=== PATIENT | male | born 1935 | race Caucasian/White ===

== ENCOUNTER → 2017-11-21 10:04 | Outpatient (CLI) | payer MEDICARE, OTHER, SELFPAY ==
[2017-11-21 10:54] LABS: Add Manual Diff / Slide Review NO; Alanine Aminotransferase 61 IU/L (21-72); Albumin 3.9 g/dL (3.5-5.0); Albumin Globulin Ratio 1.4 (1.0-2.8); Alkaline Phosphatase 61 U/L (38-126); Aspartate Aminotransferase 41 IU/L (17-59); BUN Creatinine Ratio 21.1 (6-22); Basophils Percent Auto 0.7 % (0-2); Bilirubin Total 0.8 mg/dL (0.2-1.3); Blood Urea Nitrogen 19 mg/dL (9-20); Calcium 9.6 mg/dL (8.4-10.2); Carbon Dioxide 30 mmol/L (22-32); Chloride 104 mmol/L (98-107); Cholesterol 165 mg/dL (140-199); Eosinophils Percent Auto 2.5 % (2-4); Estimated Glomerular Filt Rate > 60.0 mL/min (>60); Globulin 2.8 g/dL (1.7-4.1); Glucose 110 mg/dL (80-110); HDL Cholesterol 52 mg/dL (40-60); HEMOLYSIS < 15 (0-50); Hematocrit 46.6 % (41-53); Hemoglobin 15.8 g/dL (13.5-17.5); LDL Cholesterol Calculated 78 mg/dL (<100); Lymphocytes Percent Auto 26.6 % (25-40); Mean Corpuscular HGB Conc 33.8 % (30-36); Mean Corpuscular Volume 100.6 fL (80-100); Monocytes Percent Auto 13.9 % (3-14); Neutrophils Absolute Auto 5300 /uL (3000-5900); Neutrophils Percent Auto 56.3 % (50-75); Platelet Count 284 X10^3/uL (150-400); Potassium 3.9 mmol/L (3.4-5.1); Red Blood Cell Count 4.63 X10^6/uL (4.5-5.9); Red Cell Distribution Width 13.6 % (11.6-14.8); Sodium 142 mmol/L (137-145); Total Protein 6.7 g/dL (6.3-8.2); Triglycerides 177 mg/dL (35-150); White Blood Cell Count 9.4 X10^3/uL (4.5-11.0)
[2017-11-21 14:40] LABS: Hemoglobin A1C% w Est Avg Glu 5.5 % (4.0-6.0)
== END ==
PROVIDERS: Family Provider Family Medicine; PCP Family Medicine; Visit Provider Family Medicine
DX: E78.2 Mixed hyperlipidemia (principal); I10 Essential (primary) hypertension; Z51.81 Encounter for therapeutic drug level monitoring
CPT/HCPCS: 36415; 80053; 80061; 83036; 85025

== ENCOUNTER → 2017-12-30 12:03 | Outpatient (CLI) | payer MEDICARE, OTHER, SELFPAY ==
--- NOTE | 2017-12-30 | DI.CT.S_ITS ---
PROCEDURE: CT ABDOMEN PELVIS WO/W CON INDICATIONS: PAINLESS MICRO HEMATURIA TECHNIQUE: Optional 5 mm thick noncontrast images acquired from the diaphragm to the symphysis pubis. After the administration of intravenous contrast, 5 mm thick images acquired from the diaphragm to the symphysis pubis after a 10-minute delay. 2 mm thick coronal and sagittal reformats were then performed of the kidneys and ureters. For radiation dose reduction, the following was used: automated exposure control, adjustment of mA and/or kV according to patient size. COMPARISON: None. FINDINGS: Image quality: Excellent. Lung bases: Lung bases are clear. Heart size is normal. 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 Urinary system: On precontrast imaging, nonobstructing bilateral renal stones are seen. The largest on the right measures 4 mm. The largest on the left side measures 4-5 mm. Simple appearing nonenhancing bilateral renal cysts are seen. There is a cyst seen at the superior pole of the right kidney that measures up to 4 cm and demonstrates prominent layering calcification within its lumen. The remainder of the cysts are simple in appearance. The kidneys demonstrate normal size. The kidneys enhance symmetrically. When filled with contrast, the renal calyces demonstrate a normal appearance. The visualized ureters are unremarkable. No hydronephrosis is seen. No focal bladder abnormality can be seen. Other solid organs: Liver is normal in size and enhancement. Diffuse fatty liver infiltration is noted. Gallbladder wall does not appear thickened. Biliary system is non dilated. Pancreas enhances normally. Spleen is normal in size and enhancement. No adrenal nodules. Peritoneum and bowel: Bowel loops demonstrate normal wall thickness and caliber. No free fluid or air. Nodes and vessels: No retroperitoneal or mesenteric adenopathy by size criteria. Aorta and inferior vena cava are normal in size. Atherosclerotic calcification is noted. Abdominal wall: No ventral hernias. Anterior abdominal sutures can be seen. Pelvis: No pathologic free pelvic fluid. No inguinal hernias or adenopathy. The prostate gland is prominent in size measuring 5.4 cm transversely, and demonstrates internal coarse calcification. Bones: No suspicious bony lesions. No vertebral body compression fractures. Degenerative changes are seen throughout, which are most focal at the L5-S1 level. Mild grade 1 anterolisthesis is seen at L4-L5, without associated pars defects. IMPRESSION: Bilateral nonobstructing kidney stones are seen. There is a Bosniak type IIF cyst seen at the superior pole of the right kidney, with layering calcification. Please consider followup in 1-2 years for further evaluation. Numerous simple appearing, nonenhancing cysts are seen within each kidney. Incidental note is made of: CABG changes partially seen. Fatty liver infiltration Anterior abdominal sutures Prominent prostate Focal L5-S1 degenerative change Dictated by: Avinash Singh M.D. on 12/30/2017 at 13:56 Approved by: Avinash Singh M.D. on 12/30/2017 at 14:02
== END ==
PROVIDERS: Family Provider Family Medicine; PCP Family Medicine; Visit Provider Urology
DX: R31.21 Asymptomatic microscopic hematuria (principal); N28.1 Cyst of kidney, acquired; N20.0 Calculus of kidney; N40.0 Benign prostatic hyperplasia without lower urinary tract symptoms; M51.37 Other intervertebral disc degeneration, lumbosacral region; I25.10 Atherosclerotic heart disease of native coronary artery without angina pectoris; Z95.1 Presence of aortocoronary bypass graft
CPT/HCPCS: 74178; Q9967

== ENCOUNTER → 2018-06-11 13:02 | Outpatient (CLI) | payer MEDICARE, OTHER, SELFPAY ==
[2018-06-11 14:40] LABS: Blood Urea Nitrogen 22 mg/dL (9-20); Calcium 10.6 mg/dL (8.4-10.2); Carbon Dioxide 27 mmol/L (22-32); Chloride 101 mmol/L (98-107); Estimated Glomerular Filt Rate > 60.0 mL/min (>60); Glucose 153 mg/dL (80-110); HEMOLYSIS < 15 (0-50); Magnesium 1.7 mg/dL (1.6-2.3); Potassium 4.6 mmol/L (3.4-5.1); Sodium 139 mmol/L (137-145)
== END ==
PROVIDERS: PCP Family Medicine; Visit Provider Internal Medicine
DX: I47.2 Ventricular tachycardia (principal)
CPT/HCPCS: 36415; 80048; 83735

== ENCOUNTER → 2018-07-29 15:57 | Outpatient (CLI) | payer MEDICARE, OTHER, SELFPAY ==
--- NOTE | 2018-07-29 | DI.US.S_ITS ---
PROCEDURE: US RENAL COMPLETE INDICATIONS: CYST OF KIDNEY TECHNIQUE: Real-time scanning was performed of the kidneys and bladder, with image documentation. COMPARISON: [facility], CT, CT ABDOMEN PELVIS WO/W CON, 12/30/2017, 12:10. FINDINGS: Kidneys: Kidneys are normal in size. Right kidney measures 11.1 cm long; left kidney measures 12.8 cm long. Right renal cortical thickness is 1.6 cm; left renal cortical thickness is 2.4 cm. Renal cortical echotexture is normal. No hydronephrosis or nephrolithiasis. No suspicious solid mass lesions. Multiple bilateral simple cysts redemonstrated a mildly complex cyst again seen involving the superior pole of the right kidney measuring up to 4.8 cm in diameter with layering calcification posteriorly. Bladder: Pre-void bladder volume is 606 mL. Post-void residual is not evaluated. Pre-void images demonstrate no intraluminal masses or stones. On pre-void images, bilateral ureteral jets are noted with color Doppler interrogation. (Of note, ureteral jets may not be detectable in up to 25% of cases due to insufficient differences in specific gravity between ureteral and bladder urine). Miscellaneous: No free pelvic fluid. IMPRESSION: 1. Bosniak 2 left superior pole right renal cyst which appears similar to prior CT scan measuring up to 4.8 cm and there are multiple bilateral simple cysts. Dictated by: Ben JOSE Interpreted: Rishi Parks MD on 07/30/2018 at 8:36 Approved by: Rishi Parks M.D. on 07/31/2018 at 9:50
== END ==
PROVIDERS: PCP Family Medicine; Visit Provider Urology
DX: N28.1 Cyst of kidney, acquired (principal)
CPT/HCPCS: 76770

== ENCOUNTER → 2018-09-08 08:02 | Outpatient (CLI) | payer MEDICARE, OTHER, SELFPAY ==
--- NOTE | 2018-09-08 09:23 | P.PCN_ITS ---
Cardiac Stress Test Report Referral & Results Date Patient Seen: 09/08/18 Requesting provider: Sugey Hurley Indication: Ventricular tachycardia Rest ECG: Unremarkable Procedure Note: Today following both written and verbal informed consent the patient was exercised according to a standard [place] protocol patient went for a total of 7 minutes 8 seconds achieving a maximum heart rate of 130 maximum systolic blood pressure of 220. This is approximately 10.1 METS. Exercise was terminated at this point because of targets were met. Patient was also given Cardiolite through a previously started Hep-Lock IV by the nuclear security officer approximately 1 minute prior to the cessation of exercise. There are no ST-T segment changes. Occasional PVC including multifocal PVCs and a multifocal ventricular couplet Occasional PAC including a 4-5 beat run of what appears to be in SVT Functional aerobic impairment off scale due to age but estimate at-25% on the active scale Impression: No evidence of ischemia based on usual ECG criteria Excellent exercise capacity Ventricular and supraventricular dysrhythmias as above Please see perfusion imaging report as well Please note: Actual ECG tracings can be found in the PACS system.
--- NOTE | 2018-09-09 15:09 | DI.NM.S_ITS ---
DATE OF SERVICE: 09/08/2018 PROCEDURE PERFORMED: Exercise treadmill stress and rest myocardial perfusion imaging study with gating to assess ejection fraction and regional wall motion. ORDERING PROVIDER: Sugey Hurley MD INDICATIONS: The patient is a 83-year-old male with a history of bypass grafting who now presents with dizziness. EXERCISE TREADMILL TESTING: The patient was able to exercise for a total of 7 minutes 8 seconds on a standard [place] protocol suggesting excellent exercise capacity with an ALANA of -30%, achieving 10.1 METs. He had a normal heart rate response to exercise, achieving a maximum heart rate of 130 bpm (95% of his predicted maximum). He had a moderate hypertensive blood pressure response with a resting blood pressure of 152/80 increasing to a maximum of 220/100. He had no chest discomfort. His resting ECG appears normal and there were no significant ST-segment shifts with exercise. He had occasional multiform PVCs, rarely in couplets, but no other complex ectopy or sustained arrhythmia. At 6 minutes 3 seconds of exercise, at heart rate of 116 bpm, 20.4 mCi of technetium-99 Myoview was injected and the patient was imaged 15 minutes later using a gated SPECT acquisition protocol. He returned the following day and was reinjected with an additional 25.1 mCi of technetium-99 Myoview and was imaged 30 minutes later, again using a gated SPECT acquisition protocol. FINDINGS: 1. Raw Data: There is good myocardial tracer uptake. The lung/heart ratio is normal at 0.29 with a normal TID ratio of 0.97. 2. Quantitative Gated SPECT: Post stress ejection fraction is calculated at 71% without any focal wall motion abnormality. Resting ejection fraction is 73% with a resting end-diastolic volume of 113 mL. 3. Myocardial Perfusion Imaging: Post stress supine images show a normal perfusion pattern without any significant perfusion defects. This is supported by normal perfusion imaging in the prone position. The resting images show an identical perfusion pattern without any areas of improvement. IMPRESSION: 1. Normal myocardial perfusion study. 2. No evidence for any myocardial ischemia or previous myocardial infarction. 3. Normal left ventricular systolic function without focal wall motion abnormality. 4. Excellent exercise capacity without angina or ECG evidence of ischemia. He had a moderate hypertensive blood pressure response to exercise with occasional PVCs, rarely in couplets. 5. Compared to the previous myocardial perfusion study of 09/08/2014, the previous small, subtle distal inferolateral defect it is no longer evident. The patient had a much better exercise duration on his today's study, with a previous ALANA of +20%. Otherwise there has been no significant change. PageJames - CARMELITA/rozina/ doc#: [id number]/job#: [id number] dd: 09/09/2018 12:27:00 dt: 09/09/2018 14:54:00 DICTATING MD/COPIES TO: James Westfall MD; Sugey Hurley MD COPIES MNE: ALCIRA NICK
== END ==
PROVIDERS: PCP Family Medicine; Visit Provider Internal Medicine
DX: R42 Dizziness and giddiness (principal); I47.2 Ventricular tachycardia; R55 Syncope and collapse; Z95.1 Presence of aortocoronary bypass graft
CPT/HCPCS: 78452; 93016; 93017; 93018; A9502

== ENCOUNTER → 2018-10-21 11:12 | Outpatient (CLI) | payer MEDICARE, OTHER, SELFPAY ==
[2018-10-21 13:54] LABS: Alanine Aminotransferase 65 IU/L (21-72); Albumin Globulin Ratio 1.4 (1.0-2.8); Alkaline Phosphatase 68 U/L (38-126); Aspartate Aminotransferase 45 IU/L (17-59); BUN Creatinine Ratio 22.2 (6-22); Bilirubin Total 0.7 mg/dL (0.2-1.3); Blood Urea Nitrogen 20 mg/dL (9-20); Carbon Dioxide 25 mmol/L (22-32); Chloride 106 mmol/L (98-107); Cholesterol 175 mg/dL (140-199); Estimated Glomerular Filt Rate > 60.0 mL/min (>60); Globulin 2.9 g/dL (1.7-4.1); Glucose 108 mg/dL (80-110); HDL Cholesterol 44 mg/dL (40-60); HEMOLYSIS < 15 (0-50); LDL Cholesterol Calculated 73 mg/dL (<100); Magnesium 1.8 mg/dL (1.6-2.3); Sodium 140 mmol/L (137-145); Total Protein 6.9 g/dL (6.3-8.2); Triglycerides 290 mg/dL (35-150)
== END ==
PROVIDERS: Family Provider Family Medicine; PCP Family Medicine; Visit Provider Internal Medicine
DX: E78.5 Hyperlipidemia, unspecified (principal); E83.42 Hypomagnesemia
CPT/HCPCS: 36415; 80053; 80061; 83735

== ENCOUNTER → 2018-12-30 13:08 | Outpatient (CLI) | payer MEDICARE, OTHER, SELFPAY ==
--- NOTE | 2018-12-30 | DI.US.S_ITS ---
PROCEDURE: US RENAL COMPLETE INDICATIONS: CYST OF KIDNEY, AQUIRED TECHNIQUE: Real-time scanning was performed of the kidneys and bladder, with image documentation. COMPARISON: [facility], CT, CT ABDOMEN PELVIS WO/W CON, 12/30/2017, 12:10. [facility], US, US RENAL COMPLETE, 07/29/2018, 16:51. FINDINGS: Kidneys: Kidneys are normal in size. Right kidney measures 11.7 cm long; left kidney measures 1.5 cm long. Right renal cortical thickness is 12.5 cm; left renal cortical thickness is 1.6 cm. Renal cortical echotexture is normal. No hydronephrosis or nephrolithiasis. No suspicious solid mass lesions. There are multiple renal cysts are present. A 4.5 x 4.0 x 4.0 cm cyst in the superior pole of the right kidney demonstrates echogenic debris layering in the dependent area, probably milk of calcium. A 3.4 x 4.0 x 3.6 cm simple cyst is seen in the inferior pole of the right kidney. The largest is in the left kidney measures 7.5 x 5.7 x 8.3 cm, 3.4 x 2.4 x 2.9 cm and 2.2 x 2.0 x 2.3 cm. The cysts are simple in appearance. Bladder: Pre-void bladder volume is 560 mL. Post-void residual is 27 mL. Pre-void images demonstrate no intraluminal masses or stones. On pre-void images, both ureteral jets are noted with color Doppler interrogation. (Of note, ureteral jets may not be detectable in up to 25% of cases due to insufficient differences in specific gravity between ureteral and bladder urine). Prostate is enlarged. Miscellaneous: No free pelvic fluid. IMPRESSION: 1. Multiple renal cysts bilaterally as described. 2. Enlarged prostate with a small post void residual in the bladder. Dictated by: Denis Cook M.D. on 12/30/2018 at 18:14 Approved by: Denis Cook M.D. on 12/30/2018 at 18:19
== END ==
PROVIDERS: Family Provider Family Medicine; PCP Family Medicine; Visit Provider Urology
DX: N28.1 Cyst of kidney, acquired (principal); N40.0 Benign prostatic hyperplasia without lower urinary tract symptoms
CPT/HCPCS: 76770

== ENCOUNTER → 2019-06-29 12:35 | Outpatient (CLI) | payer MEDICARE, OTHER, SELFPAY ==
[2019-06-29 13:18] LABS: Alanine Aminotransferase 62 IU/L (<50); Albumin 4.1 g/dL (3.5-5.0); Albumin Globulin Ratio 1.4 (1.0-2.8); Alkaline Phosphatase 64 U/L (38-126); Aspartate Aminotransferase 54 IU/L (17-59); BUN Creatinine Ratio 22.7 (6-22); Bilirubin Total 0.9 mg/dL (0.2-1.3); Blood Urea Nitrogen 20 mg/dL (9-20); Calcium 9.9 mg/dL (8.4-10.2); Carbon Dioxide 25 mmol/L (22-32); Chloride 108 mmol/L (98-107); Estimated Glomerular Filt Rate > 60.0 mL/min (>60); Glucose 106 mg/dL (80-110); HEMOLYSIS < 15 (0-50); Potassium 4.3 mmol/L (3.4-5.1); Sodium 139 mmol/L (137-145); Total Protein 7.1 g/dL (6.3-8.2)
== END ==
PROVIDERS: Family Provider Family Medicine; PCP Family Medicine; Referring Provider Urology; Visit Provider Urology
DX: N28.1 Cyst of kidney, acquired (principal)
CPT/HCPCS: 36415; 80053

== ENCOUNTER → 2019-06-30 12:37 | Outpatient (CLI) | payer MEDICARE, OTHER, SELFPAY ==
--- NOTE | 2019-06-30 | DI.CT.S_ITS ---
PROCEDURE: CT ABDOMEN WO/W CON INDICATIONS: RENAL CYST TECHNIQUE: Optional 5 mm thick noncontrast images acquired from the diaphragm to the iliac crests. After the administration of intravenous contrast, 5 mm thick images again acquired from the diaphragm to the iliac crests in the arterial and urographic phases. 5 mm thick coronal and sagittal reformats were then acquired. For radiation dose reduction, the following was used: automated exposure control, adjustment of mA and/or kV according to patient size. COMPARISON: [facility], US, US RENAL COMPLETE, 12/30/2018, 13:26. [facility], US, US RENAL COMPLETE, 07/29/2018, 16:51. [facility], CT, CT ABDOMEN PELVIS WO/W CON, 12/30/2017, 12:10. FINDINGS: Image quality: Excellent. Lung bases: Lung bases are clear. Heart size is normal. Genitourinary: The prior comparison CT and ultrasound studies have been reviewed. There are a series of benign appearing renal cortical cysts, one of which contains posterior layering milk of calcium and also slightly elevated internal radiodensity above water. This is located at the superior margin of the right renal cortex measuring up to 4.3 cm with 19.2 Hounsfield units of radiodensity. More inferiorly a 2 cm water density cyst is present at the anterior right renal cortex, mid kidney level. More inferiorly also on the right anteriorly is a 3.6 cm water density cyst and slightly above this cyst medially is a 6 mm hyperdense cyst showing no internal enhancement. The left kidney contains a water density 3.8 cm cyst superiorly, posteriorly, and the largest cyst is located at the lateral cortex of the left kidney measuring up to 6.6 cm, also water density. Immediately adjacent anteriorly is a small 3.0 cm water density cyst. A 5 mm anteromedial hyperdense cyst is incidentally noted at the same axial level. The left kidney contains 2 nonobstructive calyceal calculi at the mid kidney level, the largest measuring 3 x 4 mm posteriorly. Other solid organs: Liver is normal in size and enhancement. Gallbladder appears normal. Biliary system is non dilated. Pancreas enhances normally. Spleen is normal in size and enhancement. No adrenal nodules. Peritoneum and bowel: Unenhanced bowel loops are normal in wall thickness and caliber. No free fluid or air. Nodes and vessels: No retroperitoneal or mesenteric adenopathy by size criteria. 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 Bones: No suspicious bony lesions. No vertebral body compression fractures. Miscellaneous: No ventral hernias. IMPRESSION: Scattered renal cortical cysts previously present, one of which at the upper right kidney contains posterior layering milk of calcium, present in the past on CT scan in 12/30/17. No enhancing soft tissue mass is found, no underlying malignancy or infection is suspected. 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 Incidental note is made of 2 adjacent left mid kidney nonobstructive small calculi the largest measuring 3 x 4 mm. Dictated by: Puneet Mcgraw M.D. on 06/30/2019 at 14:22 Approved by: Puneet Mcgraw M.D. on 06/30/2019 at 14:34
== END ==
PROVIDERS: Family Provider Family Medicine; PCP Family Medicine; Referring Provider Urology; Visit Provider Urology
DX: N28.1 Cyst of kidney, acquired (principal); N20.0 Calculus of kidney; I71.4 Abdominal aortic aneurysm, without rupture
CPT/HCPCS: 74170; Q9967

== ENCOUNTER → 2019-07-08 10:04 | Outpatient (CLI) | payer MEDICARE, OTHER, SELFPAY ==
[2019-07-08 11:12] LABS: Appearance Urine UA CLEAR; Bilirubin Urine UA NEGATIVE (NEGATIVE); Color Urine UA YELLOW; Glucose Urine UA NEGATIVE (Negative); Ketones Urine UA NEGATIVE (NEGATIVE); Leukocyte Esterase Urine UA NEGATIVE (NEGATIVE); Nitrite Urine UA NEGATIVE (Negative); Occult Blood Urine UA 3+ (Negative); Protein Urine UA 2+ (Negative); Specific Gravity Urine UA 1.015 (1.000-1.035); Urobilinogen Urine UA 0.2 E.U./dL (0.2)
[2019-07-08 11:32] LABS: Bacteria Urine Occasional (0-1); Culture Indicated Urine Cult Not Indicated; RBC Urine 5-10/HPF (0-5/HPF); WBC Urine 0-1/HPF (0-5/HPF)
== END ==
PROVIDERS: PCP Nurse Practitioner; Referring Provider Urology; Visit Provider Urology
DX: R31.9 Hematuria, unspecified (principal)
CPT/HCPCS: 81001

== ENCOUNTER → 2019-08-14 15:18 | Outpatient (CLI) | payer MEDICARE, OTHER, SELFPAY ==
[2019-08-18 15:21] LABS: Fecal Immunochemical Test Negative (Negative)
== END ==
PROVIDERS: PCP Nurse Practitioner; Referring Provider Nurse Practitioner; Visit Provider Nurse Practitioner
DX: Z12.11 Encounter for screening for malignant neoplasm of colon (principal)
CPT/HCPCS: 82274

== ENCOUNTER → 2019-10-26 09:49 | Outpatient (CLI) | payer MEDICARE, OTHER, SELFPAY ==
[2019-10-26 11:03] LABS: Cholesterol 175 mg/dL (140-199); HDL Cholesterol 52 mg/dL (40-60); LDL Cholesterol Calculated 67 mg/dL (<100); Magnesium 1.9 mg/dL (1.6-2.3); Triglycerides 279 mg/dL (35-150)
[2019-10-26 11:18] LABS: Creatinine Urine Random 118.9 mg/dL
[2019-10-26 11:33] LABS: Free T3, Triiodothyronine Free 3.54 pg/mL (2.77-5.27)
[2019-10-26 11:47] LABS: Thyroid Stimulating Hormone 3.75 uIU/mL (0.47-4.68)
[2019-10-26 11:49] LABS: Microalbumi Creatinin Ratio Ur 936.9 ug/mg CR (<30); Microalbumin Urine Random 111.4 mg/dL (0-1.6)
== END ==
PROVIDERS: PCP Nurse Practitioner; Referring Provider Nurse Practitioner; Visit Provider Nurse Practitioner
DX: E78.2 Mixed hyperlipidemia (principal); E83.42 Hypomagnesemia; I10 Essential (primary) hypertension; I25.10 Atherosclerotic heart disease of native coronary artery without angina pectoris; Z95.1 Presence of aortocoronary bypass graft; Z12.11 Encounter for screening for malignant neoplasm of colon; Z79.899 Other long term (current) drug therapy
CPT/HCPCS: 36415; 80061; 82043; 82570; 83735; 84439; 84443; 84481

== ENCOUNTER → 2019-12-17 08:41 | Outpatient (CLI) | payer MEDICARE, OTHER, SELFPAY ==
[2019-12-17 10:02] LABS: Cholesterol 173 mg/dL (140-199); HDL Cholesterol 48 mg/dL (40-60); LDL Cholesterol Calculated 53 mg/dL (<100); Triglycerides 362 mg/dL (35-150)
== END ==
PROVIDERS: PCP Nurse Practitioner; Referring Provider Internal Medicine; Visit Provider Internal Medicine
DX: I25.10 Atherosclerotic heart disease of native coronary artery without angina pectoris (principal); E78.2 Mixed hyperlipidemia
CPT/HCPCS: 36415; 80061

== ENCOUNTER → 2020-02-09 14:50 | Outpatient (CLI) | payer MEDICARE, OTHER, SELFPAY ==
--- NOTE | 2020-02-09 | DI.US.S_ITS ---
PROCEDURE: US RENAL COMPLETE INDICATIONS: Other specified disorders of kidney and ureter TECHNIQUE: Real-time scanning was performed of the kidneys and bladder, with image documentation. COMPARISON: [facility], RENAL COMPLETE, 12/30/2018, 13:26. [facility], RENAL COMPLETE, 07/29/2018, 16:51. FINDINGS: Kidneys: Kidneys are normal in size. Right kidney measures 14.8 cm long; left kidney measures 14.7 cm long. Right renal cortical thickness is 1.6 cm; left renal cortical thickness is 1.8 cm. Renal cortical echotexture is normal. No hydronephrosis or nephrolithiasis. No suspicious solid mass lesions. Scattered right renal cortical cysts measure up to 4.5 cm at the upper pole of the right kidney and a 3.9 cm at the lower pole. On the left the largest upper pole cyst measures 3.4 cm and at the mid kidney the largest cyst measures 2.5 cm and at the lower pole of the kidney a large exophytic cysts can be seen measuring up to 8.9 cm. Bladder: Pre-void bladder volume is 66 mL. Post-void residual could not be calculated due to inability to void voluntarily at time of the study.. Pre-void images demonstrate no intraluminal masses or stones. On pre-void images, bilateral ureteral jets are noted with color Doppler interrogation. (Of note, ureteral jets may not be detectable in up to 25% of cases due to insufficient differences in specific gravity between ureteral and bladder urine). Miscellaneous: No free pelvic fluid. IMPRESSION: No hydronephrosis or nephrolithiasis is found. Bilateral renal cortical cysts are present as discussed above the largest of which is exophytic from the lower pole of the left kidney measuring up to 8.9 cm. The patient could not voluntarily void at time of the examination but the bladder volume at that time was 66 cc. No bladder mass or calculus was identified. Dictated by: Puneet Mcgraw M.D. on 02/09/2020 at 16:43 Approved by: Puneet Mcgraw M.D. on 02/09/2020 at 16:46
== END ==
PROVIDERS: PCP Nurse Practitioner; Referring Provider Urology; Visit Provider Urology
DX: N28.1 Cyst of kidney, acquired (principal); N28.89 Other specified disorders of kidney and ureter
CPT/HCPCS: 76770

== ENCOUNTER → 2020-09-08 07:25 | Outpatient (CLI) | payer MEDICARE, OTHER, SELFPAY ==
[2020-09-08 08:22] LABS: Alanine Aminotransferase 54 IU/L (<50); Albumin 3.6 g/dL (3.5-5.0); Albumin Globulin Ratio 1.4 (1.0-2.8); Alkaline Phosphatase 69 U/L (38-126); Aspartate Aminotransferase 51 IU/L (17-59); Bilirubin Total 0.4 mg/dL (0.2-1.3); Blood Urea Nitrogen 24 mg/dL (9-20); Calcium 10.1 mg/dL (8.4-10.2); Carbon Dioxide 27 mmol/L (22-32); Chloride 106 mmol/L (98-107); Cholesterol 171 mg/dL (140-199); Estimated Glomerular Filt Rate > 60.0 mL/min (>60); Globulin 2.5 g/dL (1.7-4.1); Glucose 108 mg/dL (80-110); HDL Cholesterol 44 mg/dL (40-60); HEMOLYSIS < 15 (0-50); LDL Cholesterol Calculated 62 mg/dL (<100); Sodium 140 mmol/L (137-145); Total Protein 6.1 g/dL (6.3-8.2); Triglycerides 324 mg/dL (35-150)
[2020-09-08 08:37] LABS: Free T3, Triiodothyronine Free 4.42 pg/mL (2.77-5.27)
[2020-09-08 08:39] LABS: Creatinine Urine Random 107.9 mg/dL
[2020-09-08 08:51] LABS: Thyroid Stimulating Hormone 4.34 uIU/mL (0.47-4.68)
[2020-09-08 08:59] LABS: Microalbumi Creatinin Ratio Ur 1137.1 ug/mg CR (<30); Microalbumin Urine Random 122.7 mg/dL (0-1.6)
== END ==
PROVIDERS: PCP Nurse Practitioner; Referring Provider Nurse Practitioner; Visit Provider Nurse Practitioner
DX: E78.2 Mixed hyperlipidemia (principal); I10 Essential (primary) hypertension; R79.89 Other specified abnormal findings of blood chemistry; Z79.899 Other long term (current) drug therapy
CPT/HCPCS: 36415; 80053; 80061; 82043; 82570; 84439; 84443; 84481

== ENCOUNTER → 2020-10-12 11:36 | Outpatient (CLI) | payer MEDICARE, OTHER, SELFPAY ==
[2020-10-12 12:05] LABS: Cholesterol 169 mg/dL (140-199); HDL Cholesterol 52 mg/dL (40-60); LDL Cholesterol Calculated 76 mg/dL (<100); Triglycerides 207 mg/dL (35-150)
[2020-10-12 12:57] LABS: Microalbumi Creatinin Ratio Ur 1123.2 ug/mg CR (<30)
[2020-10-12 13:17] LABS: BUN Creatinine Ratio 26.7 (6-22); Blood Urea Nitrogen 28 mg/dL (9-20); Estimated Glomerular Filt Rate > 60.0 mL/min (>60)
--- NOTE | 2020-10-12 13:22 | DI.CT.S_ITS ---
PROCEDURE: CT ABDOMEN WO/W CON INDICATIONS: Cyst of kidney, acquired TECHNIQUE: Optional 5 mm thick noncontrast images acquired from the diaphragm to the iliac crests. After the administration of intravenous contrast, 5 mm thick images again acquired from the diaphragm to the iliac crests in the arterial and urographic phases. 5 mm thick coronal and sagittal reformats were then acquired. For radiation dose reduction, the following was used: automated exposure control, adjustment of mA and/or kV according to patient size. COMPARISON: [facility], CT, CT ABDOMEN WO/W CON, 06/30/2019, 12:36. FINDINGS: Image quality: Excellent. Lung bases: Lung bases are clear. Heart size is normal. Genitourinary: Unchanged simple cyst the upper pole of the right kidney containing milk of calcium, measuring 4.2 cm. No significant change in a cyst with a septation involving the middle pole/lower pole of the left kidney, previously measuring 8.2 x 6.2 cm currently measuring 8.1 x 6.6 cm. Multiple other simple cysts. Small nonobstructing left renal stones. No renal findings or ureteral findings which are suspicious for malignancy. Other solid organs: Liver is normal in size and enhancement. Gallbladder is unremarkable . Biliary system is non dilated. Pancreas enhances normally. Spleen is normal in size and enhancement. No adrenal nodules. Peritoneum and bowel: Unenhanced bowel loops are normal in wall thickness and caliber. No free fluid or air. Nodes and vessels: No retroperitoneal or mesenteric adenopathy by size criteria. Aorta is mildly ectatic but not frankly aneurysmal. Atherosclerotic calcifications. Bones: No suspicious bony lesions. No vertebral body compression fractures. Lumbar degenerative change. Prominent facet arthropathy and degenerative anterolisthesis of L4 on L5 measuring approximately 6 mm, resulting in severe bilateral lateral recess stenosis. Miscellaneous: No ventral hernias. IMPRESSION: 1. Stable renal findings. No findings suspicious for malignancy. 2. 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 Dictated by: Az Lopez M.D. on 10/12/2020 at 14:08 Approved by: Az Lopez M.D. on 10/12/2020 at 14:16
== END ==
PROVIDERS: PCP Nurse Practitioner; Referring Provider Urology; Visit Provider Urology
DX: E78.2 Mixed hyperlipidemia (principal); N28.1 Cyst of kidney, acquired; N18.2 Chronic kidney disease, stage 2 (mild); M47.816 Spondylosis without myelopathy or radiculopathy, lumbar region; M48.061 Spinal stenosis, lumbar region without neurogenic claudication
CPT/HCPCS: 74170; 80061; 82043; 82565; 82570; 84520; Q9967

== ENCOUNTER → 2020-12-19 12:40 | Outpatient (CLI) | payer MEDICARE, OTHER, SELFPAY ==
--- NOTE | 2020-12-19 12:42 | DI.US.S_ITS ---
PROCEDURE: US RENAL COMPLETE INDICATIONS: GLOMERULONEPHRITIS TECHNIQUE: Real-time scanning was performed of the kidneys and bladder, with image documentation. COMPARISON: [facility], CT, CT ABDOMEN WO/W CON, 10/12/2020, 13:21. [facility], US, US RENAL COMPLETE, 02/09/2020, 15:04. FINDINGS: Kidneys: Kidneys are normal in size. Right kidney measures 14.3 cm long; left kidney measures 12.5 cm long. Right renal cortical thickness is 1.5 cm; left renal cortical thickness is 1.7 cm. Renal cortical echotexture is normal. No hydronephrosis or nephrolithiasis. No suspicious solid mass lesions. Multiple bilateral renal cyst again visualized which appears similar to prior examination with the superior pole right renal cyst appearing mildly sub complex containing internal layering debris measuring up to 3.6 cm. Largest cyst on the left measuring up to 7.6 cm which appears similar to prior exam containing a septation. Bladder: Pre-void bladder volume is 394 mL. Post-void residual is 17 mL. Pre-void images demonstrate no intraluminal masses or stones. On pre-void images, left ureteral jets are noted with color Doppler interrogation. (Of note, ureteral jets may not be detectable in up to 25% of cases due to insufficient differences in specific gravity between ureteral and bladder urine). Miscellaneous: No free pelvic fluid. IMPRESSION: 1. Multiple bilateral renal cyst with the superior pole right renal cyst appearing mildly complex containing milk of calcium as was seen on prior examination as well as the larger mildly septated cyst on the left. Continued sonographic surveillance recommended. Dictated by: Ben Mayen [facility] Interpreted: Victoria Bryan MD on 12/19/2020 at 16:44 Transcribed by: EUNICE on 12/19/2020 at 16:49 Approved by: Victoria Bryan MD, PhD on 12/19/2020 at 16:56
== END ==
PROVIDERS: PCP Nurse Practitioner; Referring Provider Internal Medicine Nephrology; Visit Provider Internal Medicine Nephrology
DX: N05.9 Unspecified nephritic syndrome with unspecified morphologic changes (principal); N28.1 Cyst of kidney, acquired
CPT/HCPCS: 76770

== ENCOUNTER → 2020-12-23 10:19 | Outpatient (CLI) | payer MEDICARE, OTHER, SELFPAY ==
[2020-12-23 12:14] LABS: Erythrocyte Sedimentation Rate 6 MM/HR (0-15)
[2020-12-23 12:25] LABS: Hepatitis B Surface Antigen NEGATIVE s/c (NEGATIVE)
[2020-12-23 12:44] LABS: Hep C Virus Ab w/Reflex Quant NEGATIVE s/c (NEGATIVE)
[2020-12-24 04:10] LABS: Complement C3 135 mg/dL (82-167); Hepatitis B Core AB w/Reflex Negative (Negative)
[2020-12-24 05:45] LABS: Hepatitis B Surf Ab Qualitativ Reactive (.)
[2020-12-24 15:07] LABS: Free Kappa Lt Chains, Serum 28.5 mg/L (3.3-19.4); Free Lambda Lt Chains,Serum 17.9 mg/L (5.7-26.3)
[2020-12-26 16:16] LABS: Antimyeloperoxidase AB <9.0 U/mL (0.0-9.0); Antiproteinase 3 AB <3.5 U/mL (0.0-3.5); Atypical P-ANCA Titer <1:20 titer (Neg:<1:20); C-ANCA Titer <1:20 titer (Neg:<1:20); P-ANCA Titer <1:20 titer (Neg:<1:20)
== END ==
PROVIDERS: PCP Nurse Practitioner; Referring Provider Internal Medicine Nephrology; Visit Provider Internal Medicine Nephrology
DX: Z13.9 Encounter for screening, unspecified (principal); N08 Glomerular disorders in diseases classified elsewhere
CPT/HCPCS: 36415; 83516; 83520; 83883; 85651; 86160; 86256; 86704; 86706; 86803; 87340

== ENCOUNTER → 2021-01-20 10:37 | Outpatient (CLI) | payer MEDICARE, OTHER, SELFPAY ==
[2021-01-20 12:12] LABS: Creatinine Urine Random 94.8 mg/dL
[2021-01-20 12:16] LABS: Alanine Aminotransferase 39 IU/L (<50); Albumin 3.8 g/dL (3.5-5.0); Albumin Globulin Ratio 1.5 (1.0-2.8); Alkaline Phosphatase 73 U/L (38-126); Aspartate Aminotransferase 33 IU/L (17-59); BUN Creatinine Ratio 18.3 (6-22); Bilirubin Total 0.7 mg/dL (0.2-1.3); Blood Urea Nitrogen 21 mg/dL (9-20); Calcium 9.9 mg/dL (8.4-10.2); Carbon Dioxide 29 mmol/L (22-32); Chloride 102 mmol/L (98-107); Cholesterol 163 mg/dL (140-199); Estimated Glomerular Filt Rate > 60.0 mL/min (>60); Globulin 2.5 g/dL (1.7-4.1); Glucose 123 mg/dL (80-110); HDL Cholesterol 58 mg/dL (40-60); HEMOLYSIS < 15 (0-50); LDL Cholesterol Calculated 72 mg/dL (<100); Potassium 4.3 mmol/L (3.4-5.1); Sodium 138 mmol/L (137-145); Total Protein 6.3 g/dL (6.3-8.2); Triglycerides 167 mg/dL (35-150)
[2021-01-20 12:32] LABS: Microalbumi Creatinin Ratio Ur 1082.2 ug/mg CR (<30); Microalbumin Urine Random 102.6 mg/dL (0-1.6)
== END ==
PROVIDERS: PCP Nurse Practitioner; Referring Provider Nurse Practitioner; Visit Provider Nurse Practitioner
DX: E78.2 Mixed hyperlipidemia (principal); I10 Essential (primary) hypertension; N18.2 Chronic kidney disease, stage 2 (mild); R80.9 Proteinuria, unspecified; Z79.899 Other long term (current) drug therapy
CPT/HCPCS: 36415; 80053; 80061; 82043; 82570

== ENCOUNTER → 2021-02-14 08:33 | Outpatient (CLI) | payer MEDICARE, OTHER, SELFPAY ==
[2021-02-14 09:31] LABS: Hemoglobin A1C% w Est Avg Glu 5.7 % (4.0-6.0)
[2021-02-14 09:45] LABS: Glucose 111 mg/dL (80-110)
[2021-02-14 09:56] LABS: Creatinine Urine Random 127.5 mg/dL
[2021-02-14 10:46] LABS: Microalbumi Creatinin Ratio Ur 819.6 ug/mg CR (<30); Microalbumin Urine Random 104.5 mg/dL (0-1.6)
== END ==
PROVIDERS: PCP Nurse Practitioner; Referring Provider Nurse Practitioner; Visit Provider Nurse Practitioner
DX: R73.01 Impaired fasting glucose (principal); N18.2 Chronic kidney disease, stage 2 (mild); R80.9 Proteinuria, unspecified
CPT/HCPCS: 36415; 82043; 82570; 82947; 83036

== ENCOUNTER → 2021-03-21 15:28 | Outpatient (CLI) | payer MEDICARE, OTHER, SELFPAY | PROVIDERS: PCP Nurse Practitioner; Visit Provider Nurse Practitioner | DX: L03.90 Cellulitis, unspecified (principal) | CPT/HCPCS: 87070; 87075; 87147; 87205 ==

== ENCOUNTER → 2021-03-28 08:05 | Outpatient (CLI) | payer MEDICARE, OTHER, SELFPAY ==
[2021-03-28 09:51] LABS: Add Manual Diff / Slide Review NO; Basophils Absolute Auto 100 /uL (0-100); Basophils Percent Auto 0.8 % (0-2); Eosinophils Absolute Auto 800 /uL (0-450); Eosinophils Percent Auto 10.4 % (2-4); Hematocrit 44.2 % (41-53); Hemoglobin 14.8 g/dL (13.5-17.5); Lymphocytes Absolute Auto 2200 /uL (1100-4500); Mean Corpuscular HGB Conc 33.6 % (30-36); Mean Corpuscular Hemoglobin 33.2 PG (26-34); Monocytes Absolute Auto 1100 /uL (0-900); Neutrophils Absolute Auto 3400 /uL (1500-7000); Neutrophils Percent Auto 44.8 % (50-75); Platelet Count 218 X10^3/uL (150-400); Red Blood Cell Count 4.46 X10^6/uL (4.5-5.9); Red Cell Distribution Width 14.1 % (11.6-14.8); White Blood Cell Count 7.5 X10^3/uL (4.5-11.0)
[2021-03-28 10:21] LABS: Alanine Aminotransferase 54 IU/L (<50); Albumin Globulin Ratio 1.5 (1.0-2.8); Alkaline Phosphatase 55 U/L (38-126); Aspartate Aminotransferase 46 IU/L (17-59); BUN Creatinine Ratio 20.6 (6-22); Bilirubin Total 0.7 mg/dL (0.2-1.3); Blood Urea Nitrogen 28 mg/dL (9-20); Calcium 10.5 mg/dL (8.4-10.2); Carbon Dioxide 28 mmol/L (22-32); Chloride 107 mmol/L (98-107); Estimated Glomerular Filt Rate 49.7 mL/min (>60); Globulin 2.6 g/dL (1.7-4.1); Glucose 108 mg/dL (80-110); HEMOLYSIS < 15 (0-50); Potassium 5.3 mmol/L (3.4-5.1); Sodium 137 mmol/L (137-145); Total Protein 6.6 g/dL (6.3-8.2)
[2021-03-28 10:34] LABS: Creatinine Urine Random 74.3 mg/dL; Protein (Total) Urine Random 77 mg/dL (0-12); Protein Creatinine Ratio Urine 1.03 GRAM/24H
== END ==
PROVIDERS: PCP Nurse Practitioner; Referring Provider Internal Medicine Nephrology; Visit Provider Internal Medicine Nephrology
DX: R80.9 Proteinuria, unspecified (principal); N08 Glomerular disorders in diseases classified elsewhere; N02.8 Recurrent and persistent hematuria with other morphologic changes
CPT/HCPCS: 36415; 80053; 82570; 84156; 85025

== ENCOUNTER → 2021-04-03 14:36 | Outpatient (CLI) | payer MEDICARE, OTHER, SELFPAY | PROVIDERS: PCP Nurse Practitioner; Referring Provider Nurse Practitioner; Visit Provider Family Medicine | DX: S91.002A Unspecified open wound, left ankle, initial encounter (principal); L08.9 Local infection of the skin and subcutaneous tissue, unspecified; R60.0 Localized edema | CPT/HCPCS: 11042; 87070; 87075; 87205; 93922; 99204; 99214 ==

== ENCOUNTER → 2021-04-10 10:55 | Outpatient (CLI) | payer MEDICARE, OTHER, SELFPAY | PROVIDERS: PCP Nurse Practitioner; Referring Provider Nurse Practitioner; Visit Provider Family Medicine | DX: L97.312 Non-pressure chronic ulcer of right ankle with fat layer exposed (principal); L08.9 Local infection of the skin and subcutaneous tissue, unspecified; R60.0 Localized edema; L23.9 Allergic contact dermatitis, unspecified cause; N18.9 Chronic kidney disease, unspecified; R31.9 Hematuria, unspecified; N28.1 Cyst of kidney, acquired | CPT/HCPCS: 11042; 76770; 87070; 87075; 87077; 87147; 87186; 87205; 99214 ==

== ENCOUNTER → 2021-04-10 14:55 | Outpatient (CLI) | payer MEDICARE, OTHER, SELFPAY ==
--- NOTE | 2021-04-10 14:58 | DI.US.S_ITS ---
PROCEDURE: US RENAL COMPLETE INDICATIONS: BILATERAL RENAL CYSTS. HEMATURIA. TECHNIQUE: Real-time scanning was performed of the kidneys and bladder, with image documentation. COMPARISON: [facility], US, US RENAL COMPLETE, 12/19/2020, 13:14. [facility], CT, CT ABDOMEN WO/W CON, 10/12/2020, 13:21. FINDINGS: Kidneys: Right kidney measures 15.8 cm long; left kidney measures 11.3 cm long. Right renal cortical thickness is 1.8 cm; left renal cortical thickness is 1.7 cm. No hydronephrosis or nephrolithiasis. No significant interval change in mildly complex superior pole right renal cyst which contains a fluid fluid level ( milk of calcium) measuring up to 4.2 cm. Right inferior renal cyst also is present measuring up to 3.8 cm. No significant interval change in mildly complex and septated inferior pole left renal cyst measuring up to 8.3 cm. Bladder: Pre-void bladder volume is 98 mL. Post-void residual is unable to be assessed. Pre-void images demonstrate no intraluminal masses or stones. On pre-void images, neither ureteral jet is noted with color Doppler interrogation. (Of note, ureteral jets may not be detectable in up to 25% of cases due to insufficient differences in specific gravity between ureteral and bladder urine). Prostate measures up to 5.2 cm. Miscellaneous: No free pelvic fluid. IMPRESSION: 1. Stable appearance of bilateral complex cysts compared to prior examination. Dictated by: Ben PERAZA Interpreted: Jesus Oro MD on 04/10/2021 at 15:52 Transcribed by: LIONEL on 04/10/2021 at 15:56 Approved by: Jesus Oro M.D. on 04/10/2021 at 17:30
== END ==
PROVIDERS: PCP Nurse Practitioner; Referring Provider Urology; Visit Provider Urology
DX: R31.9 Hematuria, unspecified (principal); N28.1 Cyst of kidney, acquired
CPT/HCPCS: 76770

== ENCOUNTER → 2021-04-24 11:57 | Outpatient (CLI) | payer MEDICARE, OTHER, SELFPAY | PROVIDERS: PCP Nurse Practitioner; Referring Provider Nurse Practitioner; Visit Provider Family Medicine | DX: L85.3 Xerosis cutis (principal); N02.8 Recurrent and persistent hematuria with other morphologic changes; I25.10 Atherosclerotic heart disease of native coronary artery without angina pectoris; Z87.2 Personal history of diseases of the skin and subcutaneous tissue | CPT/HCPCS: 99213; 99214 ==

== ENCOUNTER → 2021-06-05 08:53 | Outpatient (CLI) | payer MEDICARE, OTHER, SELFPAY ==
[2021-06-05 11:20] LABS: Alanine Aminotransferase 47 IU/L (<50); Albumin 3.9 g/dL (3.5-5.0); Albumin Globulin Ratio 1.5 (1.0-2.8); Alkaline Phosphatase 63 U/L (38-126); Aspartate Aminotransferase 39 IU/L (17-59); BUN Creatinine Ratio 21.8 (6-22); Bilirubin Total 0.4 mg/dL (0.2-1.3); Blood Urea Nitrogen 24 mg/dL (9-20); Calcium 9.7 mg/dL (8.4-10.2); Carbon Dioxide 26 mmol/L (22-32); Chloride 108 mmol/L (98-107); Estimated Glomerular Filt Rate > 60.0 mL/min (>60); Globulin 2.6 g/dL (1.7-4.1); Glucose 115 mg/dL (80-110); HEMOLYSIS < 15 (0-50); Potassium 3.9 mmol/L (3.4-5.1); Sodium 139 mmol/L (137-145); Total Protein 6.5 g/dL (6.3-8.2)
[2021-06-05 19:47] LABS: Creatinine Urine Random 126.8 mg/dL; Protein (Total) Urine Random 136 mg/dL (0-12); Protein Creatinine Ratio Urine 1.07 GRAM/24H
== END ==
PROVIDERS: PCP Nurse Practitioner; Referring Provider Internal Medicine; Visit Provider Internal Medicine
DX: I10 Essential (primary) hypertension (principal); N02.8 Recurrent and persistent hematuria with other morphologic changes
CPT/HCPCS: 36415; 80053; 82570; 84156

== ENCOUNTER → 2021-10-06 07:19 | Outpatient (CLI) | payer MEDICARE, OTHER, SELFPAY ==
[2021-10-06 08:52] LABS: Creatinine Urine Random 126.7 mg/dL
[2021-10-06 09:05] LABS: Alanine Aminotransferase 72 IU/L (<50); Albumin Globulin Ratio 1.7 (1.0-2.8); Alkaline Phosphatase 72 U/L (38-126); Aspartate Aminotransferase 49 IU/L (17-59); BUN Creatinine Ratio 22.4 (6-22); Bilirubin Total 0.5 mg/dL (0.2-1.3); Blood Urea Nitrogen 24 mg/dL (9-20); Calcium 9.8 mg/dL (8.4-10.2); Carbon Dioxide 26 mmol/L (22-32); Chloride 107 mmol/L (98-107); Cholesterol 167 mg/dL (140-199); Estimated Glomerular Filt Rate > 60 mL/min (>60); Globulin 2.3 g/dL (1.7-4.1); Glucose 107 mg/dL (80-110); HDL Cholesterol 54 mg/dL (40-60); HEMOLYSIS < 15 (0-50); LDL Cholesterol Calculated 50 mg/dL (<100); Potassium 4.1 mmol/L (3.4-5.1); Sodium 140 mmol/L (137-145); Total Protein 6.3 g/dL (6.3-8.2); Triglycerides 314 mg/dL (35-150)
[2021-10-06 09:22] LABS: Free T3, Triiodothyronine Free 3.27 pg/mL (2.77-5.27); Free T4, Direct Thyroxine 0.84 ng/dL (0.78-2.19)
[2021-10-06 09:36] LABS: Thyroid Stimulating Hormone 4.33 uIU/mL (0.47-4.68)
[2021-10-06 09:43] LABS: Microalbumi Creatinin Ratio Ur 493.2 ug/mg CR (<30); Microalbumin Urine Random 62.5 mg/dL (0-1.6)
== END ==
PROVIDERS: PCP Nurse Practitioner; Referring Provider Nurse Practitioner; Visit Provider Nurse Practitioner
DX: E78.2 Mixed hyperlipidemia (principal); I12.9 Hypertensive chronic kidney disease with stage 1 through stage 4 chronic kidney disease, or unspecified chronic kidney disease; N18.2 Chronic kidney disease, stage 2 (mild); R73.01 Impaired fasting glucose; R80.9 Proteinuria, unspecified; Z79.899 Other long term (current) drug therapy
CPT/HCPCS: 36415; 80053; 80061; 82043; 82570; 84439; 84443; 84481

== ENCOUNTER → 2021-10-11 11:02 | Outpatient (CLI) | payer MEDICARE, OTHER, SELFPAY ==
[2021-10-11 12:40] LABS: Clostridium Difficile Tox PCR Negative for C. diff (Negative)
== END ==
PROVIDERS: PCP Nurse Practitioner; Referring Provider Nurse Practitioner; Visit Provider Nurse Practitioner
DX: R19.7 Diarrhea, unspecified (principal)
CPT/HCPCS: 87324; 87493

== ENCOUNTER → 2021-11-28 08:11 | Outpatient (CLI) | payer MEDICARE, OTHER, SELFPAY ==
[2021-11-28 08:47] LABS: Alanine Aminotransferase 48 IU/L (<50); Albumin 4.2 g/dL (3.5-5.0); Albumin Globulin Ratio 1.3 (1.0-2.8); Alkaline Phosphatase 69 U/L (38-126); Aspartate Aminotransferase 38 IU/L (17-59); BUN Creatinine Ratio 20.7 (6-22); Bilirubin Total 0.5 mg/dL (0.2-1.3); Blood Urea Nitrogen 24 mg/dL (9-20); Carbon Dioxide 28 mmol/L (22-32); Chloride 106 mmol/L (98-107); Estimated Glomerular Filt Rate > 60 mL/min (>60); Globulin 3.2 g/dL (1.7-4.1); Glucose 120 mg/dL (80-110); HEMOLYSIS 23 (0-50); Potassium 3.8 mmol/L (3.4-5.1); Sodium 141 mmol/L (137-145); Total Protein 7.4 g/dL (6.3-8.2)
== END ==
PROVIDERS: PCP Nurse Practitioner; Referring Provider Urology; Visit Provider Urology
DX: N28.1 Cyst of kidney, acquired (principal)
CPT/HCPCS: 36415; 80053

== ENCOUNTER → 2021-11-29 14:04 | Outpatient (CLI) | payer MEDICARE, OTHER, SELFPAY ==
--- NOTE | 2021-11-29 14:06 | DI.CT.S_ITS ---
PROCEDURE: CT ABDOMEN RENAL PROTOCOL INDICATIONS: Cyst of kidney, acquired TECHNIQUE: Optional 5 mm thick noncontrast images acquired from the diaphragm to the iliac crests. After the administration of intravenous contrast, 5 mm thick images again acquired from the diaphragm to the iliac crests in the arterial and urographic phases. 5 mm thick coronal and sagittal reformats were then acquired. For radiation dose reduction, the following was used: automated exposure control, adjustment of mA and/or kV according to patient size. COMPARISON: [facility], CT, CT ABDOMEN WO/W CON, 10/12/2020, 13:21. [facility], US, US RENAL COMPLETE, 04/10/2021, 15:04. FINDINGS: Image quality: Excellent. Lung bases: No pleural effusion. Part solid pulmonary nodules are present within the upper aspect of the right middle lobe and the anterior aspect of the right lower lobe (for example coronal series 4, image 35). The right lower lobe nodule does not appear substantially changed since the prior CT. The he area of the right middle lobe nodule is not definitively within the [id number] of the prior exam. The right lower lobe nodule measures approximately 1.9 cm in the axial plane, with the solid component measuring 9 mm. Genitourinary: Renal cortical cysts are present bilaterally as before. Most of the cysts appear simple. Some are too small to characterize but are statistically likely to be benign. One cyst at the upper right kidney contains milk of calcium. No suspicious features such as soft tissue nodularity or definite enhancing component identified. The largest right-sided cyst is at the upper kidney measuring 4.0 cm and the largest left-sided cyst is at the upper kidney measuring 6.6 cm. The cysts do not appear substantially changed since the prior exam. No hydronephrosis. Few small nonobstructing stones present bilaterally as before. Other solid organs: Liver is normal in size and overall enhancement. Small hypodensities at the inferior right lobe of the liver are not significantly changed, probable cysts. Gallbladder is unremarkable. Biliary system is non dilated. Pancreas enhances normally. Spleen is not visualized. No adrenal nodules. Peritoneum and bowel: Visualized large and small bowel is non-dilated. No free air or substantial free fluid. Nodes and vessels: No retroperitoneal or mesenteric adenopathy by size criteria. Similar ectasia of the abdominal aorta measuring 2.9 cm. Bones: No suspicious bony lesions. No vertebral body compression fractures. IMPRESSION: 1. No significant interval change in bilateral renal cortical cysts. No definite suspicious features identified. 2. Part solid pulmonary nodules are present within the right lung base, at least one of which has persisted since 2020. The findings are concerning for neoplasm. Pulmonology consultation may be helpful to direct further management. Could consider chest CT for complete evaluation of the lungs and/or PET-CT as clinically indicated. Dictated by: George Gonzalez M.D. on 11/30/2021 at 14:46 Approved by: George oGnzalez M.D. on 11/30/2021 at 15:13
== END ==
PROVIDERS: PCP Nurse Practitioner; Referring Provider Urology; Visit Provider Urology
DX: N28.1 Cyst of kidney, acquired (principal); R91.8 Other nonspecific abnormal finding of lung field
CPT/HCPCS: 74170; Q9967

== ENCOUNTER → 2022-01-04 09:41 | Outpatient (CLI) | payer MEDICARE, OTHER, SELFPAY ==
[2022-01-04 10:38] LABS: BUN Creatinine Ratio 25.9 (6-22); Blood Urea Nitrogen 28 mg/dL (9-20); Calcium 10.1 mg/dL (8.4-10.2); Carbon Dioxide 26 mmol/L (22-32); Chloride 105 mmol/L (98-107); Estimated Glomerular Filt Rate > 60 mL/min (>60); Glucose 108 mg/dL (80-110); HEMOLYSIS < 15 (0-50); Potassium 4.4 mmol/L (3.4-5.1); Sodium 140 mmol/L (137-145)
== END ==
PROVIDERS: PCP Nurse Practitioner; Referring Provider Nurse Practitioner; Visit Provider Nurse Practitioner
DX: Z01.812 Encounter for preprocedural laboratory examination (principal)
CPT/HCPCS: 36415; 80048

== ENCOUNTER → 2022-01-05 11:57 | Outpatient (CLI) | payer MEDICARE, OTHER, SELFPAY ==
--- NOTE | 2022-01-05 11:58 | DI.CT.S_ITS ---
PROCEDURE: CT CHEST W CON INDICATIONS: F/u pulmonary nodule TECHNIQUE: After the administration of intravenous contrast, 5 mm thick sections acquired from the pulmonary apices to the posterior costophrenic angles. 1 mm axial lung, 5 mm thick coronal and sagittal reformats and 7 mm axial MIP were acquired. For radiation dose reduction, the following was used: automated exposure control, adjustment of mA and/or kV according to patient size. COMPARISON: [facility], CT, CT ABDOMEN WO/W CON, 10/12/2020, 13:21. [facility], CT, CT ABDOMEN WO/W CON, 06/30/2019, 12:36. FINDINGS: Image quality: Excellent. Lungs and pleura: 3 solid nodules with peripheral ground-glass radiopacities are present within the right lung. A 1.6 cm nodule within the superior aspect of the right middle lobe (series 3/image 146), a 2.0 cm nodule within the anterior aspect of the right lower lobe (series 3/188), and a predominantly ground-glass 1.2 cm nodule within the anterior medial aspect of the right lower lobe (series 3/image 208). The more inferior nodules within the right lower lobe are unchanged from the study dated October 12, 2020. The more superior nodule has not been visualized on prior comparison studies. Atelectasis or scar is present in the dependent left lung base. No pleural effusion or pneumothorax. Mediastinum: Heart size is normal. No pericardial effusion. No mediastinal or hilar adenopathy by size criteria. Thoracic aorta and central pulmonary arteries are normal in size. Scattered atheromatous calcifications are present within the aortic arch. Esophagus is normal in caliber. No hiatal hernia. Bones and chest wall: No suspicious bony lesions. No vertebral body compression fractures. No axillary or supraclavicular adenopathy by size criteria. Thyroid gland is unremarkable . Abdomen: Visualized upper abdominal solid organs appear normal. Upper abdominal bowel loops are normal in caliber. IMPRESSION: 1. Semi solid nodules as above. The 2 basilar nodules are likely unchanged from prior studies; however the more superior nodule has not previously been imaged. Short interval follow-up at 3-6 months is recommended. Please see follow-up guidelines below. Fleischner Society criteria for SOLID lung nodule followup. Nodule size (mm)Low-risk patientHigh-risk patient<6 (single or multiple)No routine followup.Optional CT at 12 months. 6-8 (single or multiple)CT at 6-12 months, then optional CT at 18-24 mo.CT at 6-12 months, then CT at 18-24 months. >8 (single)CT at 3 months, PET-CT, or biopsy. Same as for low-risk pts. >8 (multiple)CT at 3-6 months, then optional CT at 18-24 mo.CT at 3-6 months, then CT at 18-24 months. Fleischner Society criteria for SUB-SOLID lung nodule followup. Solitary pure ground-glass nodules<6 mm (ground glass or part solid)No followup needed. 6 mm or larger (ground glass)CT at 6-12 months to confirm persistence, then CT every 2 years until 5 years.6 mm or larger (part solid)CT at 3-6 months to confirm persistence, then annual CT until 5 years if unchanged and solid component remains <6 mm. Multiple sub-solid nodules<6 mmCT at 3-6 months, then CT consider at 2 & 4 years for high risk patients. [address] at 3-6 months. Subsequent management based on most suspicious lesions. Recommendations do not apply to lung cancer screening, patients with immunosuppression, or patients with known primary cancer. Dictated by: Lucero Newton M.D. on 01/05/2022 at 15:32 Approved by: Lucero Newton M.D. on 01/05/2022 at 15:38
== END ==
PROVIDERS: PCP Nurse Practitioner; Referring Provider Nurse Practitioner; Visit Provider Nurse Practitioner
DX: R91.8 Other nonspecific abnormal finding of lung field (principal); R93.89 Abnormal findings on diagnostic imaging of other specified body structures
CPT/HCPCS: 71260; Q9967

== ENCOUNTER → 2022-02-26 14:01 | Outpatient (CLI) | payer MEDICARE, OTHER, SELFPAY ==
[2022-02-26 15:02] LABS: Appearance Urine UA CLEAR; Bilirubin Urine UA NEGATIVE (NEGATIVE); Color Urine UA YELLOW; Glucose Urine UA NEGATIVE (Negative); Ketones Urine UA NEGATIVE (NEGATIVE); Leukocyte Esterase Urine UA NEGATIVE (NEGATIVE); Nitrite Urine UA NEGATIVE (Negative); Occult Blood Urine UA 2+ (Negative); Protein Urine UA 2+ (Negative); Urobilinogen Urine UA 0.2 E.U./dL (0.2)
[2022-02-26 15:21] LABS: RBC Urine 10-30/HPF (0-5/HPF); WBC Urine 1-5/HPF (0-5/HPF)
[2022-02-26 15:22] LABS: Bacteria Urine Few (2-10); Culture Indicated Urine Cult Not Indicated
== END ==
PROVIDERS: PCP Nurse Practitioner; Referring Provider Nurse Practitioner; Visit Provider Nurse Practitioner
DX: R31.9 Hematuria, unspecified (principal)
CPT/HCPCS: 81001

== ENCOUNTER → 2022-03-15 10:11 | Outpatient (CLI) | payer MEDICARE, OTHER, SELFPAY ==
[2022-03-15 10:50] LABS: BUN Creatinine Ratio 21.9 (6-22); Blood Urea Nitrogen 25 mg/dL (9-20); Calcium 9.6 mg/dL (8.4-10.2); Carbon Dioxide 27 mmol/L (22-32); Chloride 105 mmol/L (98-107); Estimated Glomerular Filt Rate > 60 mL/min (>60); Glucose 113 mg/dL (80-110); HEMOLYSIS < 15 (0-50); Potassium 4.2 mmol/L (3.4-5.1); Sodium 139 mmol/L (137-145)
== END ==
PROVIDERS: PCP Nurse Practitioner; Referring Provider Internal Medicine; Visit Provider Internal Medicine
DX: N02.8 Recurrent and persistent hematuria with other morphologic changes (principal)
CPT/HCPCS: 36415; 80048

== ENCOUNTER → 2022-04-11 13:52 | Outpatient (CLI) | payer MEDICARE, OTHER, SELFPAY ==
--- NOTE | 2022-04-11 13:54 | DI.CT.S_ITS ---
PROCEDURE: CT CHEST WO CON INDICATIONS: growth of nodules TECHNIQUE: Noncontrast 5 mm thick sections acquired from the pulmonary apices to the posterior costophrenic angles. 1 mm lung window, 5 mm thick coronal and sagittal and 7 mm axial MIP reformats were then acquired. For radiation dose reduction, the following was used: automated exposure control, adjustment of mA and/or kV according to patient size. COMPARISON: [facility], CT, CT ABDOMEN PELVIS WO/W CON, 12/30/2017, 12:10. [facility], CT, CT CHEST W CON, 01/05/2022, 12:17. FINDINGS: Image quality: Excellent. Lungs and pleura: Solid nodule with surrounding ground-glass opacity abutting the right minor fissure at the superior aspect of the right lower lobe is redemonstrated, fairly stable with respect to both solid and ground-glass components. Solid portion measures 1.7 cm (3/144). Ground-glass portion inferiorly measures 2.8 cm (3/149). A juxta fissural nodule similar in morphology in the right anterior lower lobe adjacent to the right major fissure is 2.0 cm, stable over multiple years (3/184). Small spiculated focus of mainly ground-glass opacity in the medial right lower lobe, 3/207 is also stable, probably present in 12/30/17 on series 4/image 10, but probably more apparent due to decreased slice thickness on the current study. Vertically oriented linear atelectasis or scar in the left lower lobe with mild associated left lower lobe volume loss is unchanged compared to most recent prior study. No pleural effusion, pneumothorax, or airway abnormality. Mediastinum: Heart size is normal. Heavy coronary artery calcification. No pericardial effusion. No mediastinal adenopathy by size criteria. Thoracic aorta and central pulmonary arteries are normal in size. Esophagus is normal in caliber. No hiatal hernia. Bones and chest wall: Median sternotomy changes. No suspicious bony lesions. No vertebral body compression fractures. No axillary or supraclavicular adenopathy by size criteria. Thyroid gland is normal . Abdomen: The spleen is absent. There are partially imaged cysts arising from the left kidney upper pole. Visible stomach and bowel loops are within normal limits. IMPRESSION: 1. There is long-term stability of two part solid right lower lobe lung nodules. 2. There is three month stability of the right middle lobe lung nodule which was not previously imaged. Annual chest CT for five years is recommended. Given the large solid component, PET-CT could also be considered, particularly if there is history of a primary malignancy. 3. No suspicious adenopathy. 4. Heavy coronary artery calcification and prior median sternotomy change. Dictated by: Debbie Alegre M.D. on 04/12/2022 at 8:57 Approved by: Debbie Alegre M.D. on 04/12/2022 at 9:19
== END ==
PROVIDERS: PCP Nurse Practitioner; Referring Provider Nurse Practitioner; Visit Provider Nurse Practitioner
DX: R93.89 Abnormal findings on diagnostic imaging of other specified body structures (principal); R91.8 Other nonspecific abnormal finding of lung field; I25.10 Atherosclerotic heart disease of native coronary artery without angina pectoris; N28.1 Cyst of kidney, acquired; Z90.81 Acquired absence of spleen
CPT/HCPCS: 71250

== ENCOUNTER → 2022-05-09 11:00 | Outpatient (CLI) | payer MEDICARE, OTHER, SELFPAY ==
[2022-05-09 12:28] LABS: Appearance Urine UA CLEAR; Bilirubin Urine UA NEGATIVE (NEGATIVE); Color Urine UA YELLOW; Glucose Urine UA NEGATIVE (Negative); Ketones Urine UA NEGATIVE (NEGATIVE); Leukocyte Esterase Urine UA 1+ (NEGATIVE); Nitrite Urine UA NEGATIVE (Negative); Occult Blood Urine UA TRACE-INTACT (Negative); Protein Urine UA TRACE (Negative); Specific Gravity Urine UA 1.025 (1.000-1.035); Urobilinogen Urine UA 0.2 E.U./dL (0.2); pH Urine UA 5.5 (4.5-8.0)
[2022-05-09 12:29] LABS: Hematocrit 43.6 % (41-53); Hemoglobin 14.7 g/dL (13.5-17.5); Mean Corpuscular HGB Conc 33.6 % (30-36); Mean Corpuscular Hemoglobin 33.9 PG (26-34); Mean Corpuscular Volume 100.7 fL (80-100); Red Blood Cell Count 4.33 X10^6/uL (4.5-5.9); Red Cell Distribution Width 13.5 % (11.6-14.8); White Blood Cell Count 8.6 X10^3/uL (4.5-11.0)
[2022-05-09 12:42] LABS: Alanine Aminotransferase 51 IU/L (<50); Albumin 4.2 g/dL (3.5-5.0); Albumin Globulin Ratio 1.4 (1.0-2.8); Alkaline Phosphatase 57 U/L (38-126); Aspartate Aminotransferase 43 IU/L (17-59); BUN Creatinine Ratio 24.8 (6-22); Bilirubin Total 0.9 mg/dL (0.2-1.3); Blood Urea Nitrogen 27 mg/dL (9-20); Calcium 9.7 mg/dL (8.4-10.2); Carbon Dioxide 27 mmol/L (22-32); Chloride 104 mmol/L (98-107); Cholesterol 177 mg/dL (140-199); Estimated Glomerular Filt Rate > 60 mL/min (>60); Globulin 2.9 g/dL (1.7-4.1); Glucose 111 mg/dL (80-110); HDL Cholesterol 49 mg/dL (40-60); HEMOLYSIS < 15 (0-50); LDL Cholesterol Calculated 86 mg/dL (<100); Magnesium 1.8 mg/dL (1.6-2.3); Potassium 4.1 mmol/L (3.4-5.1); Sodium 140 mmol/L (137-145); Total Protein 7.1 g/dL (6.3-8.2); Triglycerides 212 mg/dL (35-150)
[2022-05-09 12:56] LABS: RBC Urine None Seen (0-5/HPF); Squamous Epithelial Cell Urine 0-1 /HPF (0-5/HPF); WBC Urine 1-5/HPF (0-5/HPF)
[2022-05-09 12:57] LABS: Bacteria Urine None Seen; Culture Indicated Urine Specimen Cultured
[2022-05-09 12:57] LABS: Platelet Count 232 X10^3/uL (150-400)
[2022-05-09 13:14] LABS: Free T3, Triiodothyronine Free 3.58 pg/mL (2.77-5.27); Free T4, Direct Thyroxine 0.97 ng/dL (0.78-2.19)
[2022-05-09 13:28] LABS: Thyroid Stimulating Hormone 2.26 uIU/mL (0.47-4.68)
[2022-05-09 16:32] LABS: Microalbumin Urine Random 20.6 mg/dL (0-1.6)
== END ==
PROVIDERS: PCP Nurse Practitioner; Referring Provider Nurse Practitioner; Visit Provider Nurse Practitioner
DX: D64.9 Anemia, unspecified (principal); I10 Essential (primary) hypertension; E78.2 Mixed hyperlipidemia; N18.2 Chronic kidney disease, stage 2 (mild); R31.9 Hematuria, unspecified; R73.01 Impaired fasting glucose; R80.9 Proteinuria, unspecified; Z79.899 Other long term (current) drug therapy
CPT/HCPCS: 36415; 80053; 80061; 81001; 82043; 82570; 83735; 84439; 84443; 84481; 85027; 87086

== ENCOUNTER 2022-08-07 13:21 | Outpatient (RCR) | payer MEDICARE, OTHER, SELFPAY | END 2022-08-07 15:21 | LOC: PUL 13:21 | PROVIDERS: PCP Nurse Practitioner; Referring Provider Family Medicine; Visit Provider Family Medicine | DX: C34.91 Malignant neoplasm of unspecified part of right bronchus or lung (principal); C34.2 Malignant neoplasm of middle lobe, bronchus or lung | CPT/HCPCS: G0237; G0238 ==

== ENCOUNTER → 2022-09-27 09:06 | Outpatient (CLI) | payer MEDICARE, OTHER, SELFPAY ==
--- NOTE | 2022-09-27 09:08 | DI.RAD.S_ITS ---
PROCEDURE: XR HIP W PEL IF DONE VASQUEZ MIN 4V INDICATIONS: bilateral hip pain TECHNIQUE: AP pelvis with lateral view(s) of the bilateral hip(s). COMPARISON: [facility], CT, CT ABDOMEN PELVIS WO/W CON, 12/30/2017, 12:10. [facility], CR, [id number] W PEL IF PERFORMED, 10/09/2016, 12:54. FINDINGS: Bones: No fractures or dislocations. Pelvic ring appears intact. No suspicious bony lesions. Moderate bilateral degenerative hip arthritic change, relatively stable compared to prior exam. Small periarticular osteophytes. No erosions. Soft tissues: The visualized bowel gas pattern is normal. Calcifications are present overlying the mid pelvis, unchanged and possibly related to prostate calcifications. IMPRESSION: Bilateral hip moderate arthritic change. Dictated by: Maria Del Carmen Marks M.D. on 09/27/2022 at 14:02 Approved by: Maria Dle Carmen Marks M.D. on 09/27/2022 at 14:05
== END ==
PROVIDERS: PCP Nurse Practitioner; Referring Provider Nurse Practitioner; Visit Provider Nurse Practitioner
DX: M16.4 Bilateral post-traumatic osteoarthritis of hip (principal); M25.551 Pain in right hip; M25.552 Pain in left hip; M54.50 Low back pain, unspecified
CPT/HCPCS: 73522; 99214

== ENCOUNTER → 2022-10-10 10:55 | Outpatient (CLI) | payer MEDICARE, OTHER, SELFPAY ==
[2022-10-10 13:36] LABS: Alanine Aminotransferase 49 IU/L (<50); Albumin 4.1 g/dL (3.5-5.0); Albumin Globulin Ratio 1.6 (1.0-2.8); Alkaline Phosphatase 69 U/L (38-126); Aspartate Aminotransferase 36 IU/L (17-59); BUN Creatinine Ratio 23.7 (6-22); Bilirubin Total 0.6 mg/dL (0.2-1.3); Blood Urea Nitrogen 27 mg/dL (9-20); Calcium 9.9 mg/dL (8.4-10.2); Carbon Dioxide 22 mmol/L (22-32); Chloride 106 mmol/L (98-107); Cholesterol 157 mg/dL (140-199); Estimated Glomerular Filt Rate > 60 mL/min (>60); Globulin 2.6 g/dL (1.7-4.1); Glucose 114 mg/dL (80-110); HDL Cholesterol 49 mg/dL (40-60); HEMOLYSIS < 15 (0-50); LDL Cholesterol Calculated 78 mg/dL (<100); Potassium 4.1 mmol/L (3.4-5.1); Sodium 139 mmol/L (137-145); Total Protein 6.7 g/dL (6.3-8.2); Triglycerides 151 mg/dL (35-150)
--- NOTE | 2022-10-10 15:22 | DI.MRI.S_ITS ---
PROCEDURE: MR LUMBAR SPINE WO/W CON INDICATIONS: Chronic low back pain, history of prostate cancer TECHNIQUE: Noncontrast sagittal T1 spin echo and T2 fast echo, sagittal STIR, and T2 fast spin echo through the lumbar spine. In cases with scoliosis, additional coronal T2 fast spin echo may be performed. COMPARISON: None. FINDINGS: Image quality: Excellent. Alignment and Curvature: Mild grade 1 anterolisthesis can be seen at the L4-L5 level. Bone Marrow: Marrow is of normal overall signal. No acute vertebral body compression fractures. Spinal Cord: Conus medullaris terminates at the L1-L2 level. Visualized cord demonstrates normal signal and size. Paraspinous Soft Tissues: No paravertebral masses. Bilateral renal cysts are seen. No abnormal enhancement can be seen on the postcontrast images. Age-appropriate lower thoracic spine degenerative changes are seen. T12-L1: Moderate loss of disc height is seen. Loss of disc signal is seen. Mild to moderate disc bulge is seen, with a mild central disc protrusion. There is mild right-sided and [id number] left-sided facet hypertrophy. Moderate bilateral neural foraminal narrowing can be seen, left worse than right. Mild central canal narrowing is seen. L1-L2: Moderate loss of disc height is seen. Loss of disc signal is seen. Mild to moderate disc bulge is seen, with a central disc protrusion. Mild to moderate facet hypertrophy is seen. Moderate bilateral neural foraminal narrowing can be seen, left worse than right. Moderate central canal narrowing is seen. L2-L3: The disc height is well-preserved. Loss of disc signal is seen at this level. There is a remote Schmorl's node seen involving the inferior endplate of L2, with associated fatty metaplasia. Moderate disc bulge is seen, which is eccentric to the left. There is a superimposed central disc protrusion. Moderate facet joint hypertrophy is seen. Moderate bilateral neural foraminal narrowing is seen. Moderate central canal narrowing is seen. L3-L4: The disc height is well-preserved. Loss of disc signal is seen at this level. Moderate generalized disc bulge is seen. There is a superimposed central disc protrusion. Moderate to prominent facet hypertrophy can be seen. There is at least moderate bilateral neural foraminal narrowing seen, left worse than right. Moderate to prominent central canal narrowing is seen. L4-L5: Mild loss of disc height is seen. Loss of disc signal is seen. Moderate generalized disc bulge is seen. There is a superimposed central disc protrusion. Prominent facet hypertrophy is seen. Associated hypertrophy of the ligamentum flavum can be seen. There is moderate to severe bilateral neural foraminal narrowing seen, with an associated a degree of compression seen upon the exiting nerve roots. Severe central canal narrowing is seen, as on series 7, image 23. L5-S1: Moderate loss of disc height is seen. Loss of disc signal is seen. Reactive marrow endplate changes are seen, which are hyperintense on T1-weighted and T2-weighted imaging and most consistent with fatty metaplasia (Modic type II changes). At least moderate disc bulge is seen, with a central disc protrusion. Fissure moderate facet hypertrophy is seen, right worse than left. There is moderate to severe bilateral neural foraminal narrowing seen, with an associated a degree of compression seen upon the exiting nerve roots. Moderate central canal narrowing is seen. IMPRESSION: Multiple levels of significant lumbar spine degenerative change can be seen, which are worst inferiorly. No abnormal enhancement is seen. Dictated by: Avinash Singh M.D. on 10/10/2022 at 16:35 Approved by: Avinash Singh M.D. on 10/10/2022 at 16:38
--- NOTE | 2022-10-10 15:22 | DI.RAD.S_ITS ---
PROCEDURE: XR LUMBAR SPINE MIN 4V INDICATIONS: Chronic low back pain, history of prostate cancer TECHNIQUE: 5 views of the lumbar spine were acquired, including bilateral oblique views. COMPARISON: [facility], CR, XR CHEST 2 VIEWS, 07/26/2022, 12:31. FINDINGS: Bones: 5 nonrib-bearing vertebrae are present. Multilevel degenerative changes. There is facet arthrosis with grade 1 anterolisthesis of L4-5. There is normal bony alignment. No vertebral body compression fractures. No suspicious bony lesions. Soft tissues: Overlying bowel gas pattern is normal. The aorta has atherosclerotic calcifications. No suspicious soft tissue calcifications. Layering calcifications in the right upper quadrant seen could be in the gallbladder. Oblique images: No pars defects. IMPRESSION: 1. Multilevel degenerative changes. 2. Multilevel facet arthropathy with grade 1 anterolisthesis of L4-5. Dictated by: Vazquez Jara M.D. on 10/10/2022 at 16:54 Approved by: Vazquez Jara M.D. on 10/10/2022 at 16:57
== END ==
PROVIDERS: PCP Nurse Practitioner; Referring Provider Anesthesiology; Visit Provider Anesthesiology
DX: M43.16 Spondylolisthesis, lumbar region (principal); C61 Malignant neoplasm of prostate; M47.816 Spondylosis without myelopathy or radiculopathy, lumbar region; M54.50 Low back pain, unspecified; I25.10 Atherosclerotic heart disease of native coronary artery without angina pectoris
CPT/HCPCS: 36415; 72110; 72158; 80053; 80061

== ENCOUNTER → 2023-03-07 07:38 | Outpatient (CLI) | payer MEDICARE, OTHER, SELFPAY ==
[2023-03-07 08:34] LABS: Influenza A - CEPHEID Flu A NEGATIVE (NEGATIVE); Influenza B - CEPHEID Flu B NEGATIVE (NEGATIVE); Respiratory Syncytial Virus Negative (Negative)
[2023-03-07 10:07] LABS: COVID-19 CEPHEID 4-PLEX PCR Negative (Negative)
== END ==
PROVIDERS: PCP Nurse Practitioner; Visit Provider Nurse Practitioner Family
DX: R05.1 Acute cough (principal)
CPT/HCPCS: 0241U

== ENCOUNTER → 2023-03-21 10:30 | Outpatient (CLI) | payer MEDICARE, OTHER, SELFPAY ==
[2023-03-21 11:23] LABS: Alanine Aminotransferase 44 IU/L (<50); Albumin 3.7 g/dL (3.5-5.0); Albumin Globulin Ratio 1.3 (1.0-2.8); Alkaline Phosphatase 52 U/L (38-126); Aspartate Aminotransferase 39 IU/L (17-59); Bilirubin Total 0.9 mg/dL (0.2-1.3); Blood Urea Nitrogen 20 mg/dL (9-20); Calcium 10.2 mg/dL (8.4-10.2); Carbon Dioxide 29 mmol/L (22-32); Chloride 105 mmol/L (98-107); Cholesterol 149 mg/dL (140-199); Estimated Glomerular Filt Rate > 60 mL/min (>60); Globulin 2.8 g/dL (1.7-4.1); Glucose 114 mg/dL (80-110); HDL Cholesterol 50 mg/dL (40-60); HEMOLYSIS < 15 (0-50); LDL Cholesterol Calculated 66 mg/dL (<100); Sodium 138 mmol/L (137-145); Total Protein 6.5 g/dL (6.3-8.2); Triglycerides 165 mg/dL (35-150)
== END ==
PROVIDERS: PCP Nurse Practitioner; Referring Provider Internal Medicine; Visit Provider Internal Medicine
DX: I25.10 Atherosclerotic heart disease of native coronary artery without angina pectoris (principal)
CPT/HCPCS: 36415; 80053; 80061

== ENCOUNTER → 2023-08-08 08:58 | Outpatient (CLI) | payer MEDICARE, OTHER, SELFPAY ==
[2023-08-08 10:26] LABS: Add Manual Diff / Slide Review NO; Basophils Absolute Auto 100 /uL (0-100); Basophils Percent Auto 0.7 % (0-2); Eosinophils Absolute Auto 300 /uL (0-450); Eosinophils Percent Auto 3.6 % (2-4); Hemoglobin 13.2 g/dL (13.5-17.5); Lymphocytes Absolute Auto 2200 /uL (1100-4500); Lymphocytes Percent Auto 23.2 % (25-40); Mean Corpuscular HGB Conc 33.8 % (30-36); Mean Corpuscular Hemoglobin 33.7 PG (26-34); Monocytes Absolute Auto 1300 /uL (0-900); Monocytes Percent Auto 13.8 % (3-14); Neutrophils Absolute Auto 5500 /uL (1500-7000); Neutrophils Percent Auto 58.7 % (50-75); Platelet Count 227 X10^3/uL (150-400); Red Cell Distribution Width 13.1 % (11.6-14.8); White Blood Cell Count 9.4 X10^3/uL (4.5-11.0)
[2023-08-09 13:14] LABS: Alanine Aminotransferase 33 IU/L (<50); Albumin 3.8 g/dL (3.5-5.0); Albumin Globulin Ratio 1.7 (1.0-2.8); Alkaline Phosphatase 67 U/L (38-126); Aspartate Aminotransferase 35 IU/L (17-59); BUN Creatinine Ratio 20.5 (6-22); Bilirubin Total 0.8 mg/dL (0.2-1.3); Blood Urea Nitrogen 18 mg/dL (9-20); Calcium 9.8 mg/dL (8.4-10.2); Carbon Dioxide 30 mmol/L (22-32); Chloride 107 mmol/L (98-107); Estimated Glomerular Filt Rate > 60 mL/min (>60); Globulin 2.3 g/dL (1.7-4.1); Glucose 119 mg/dL (80-110); HEMOLYSIS < 15 (0-50); Potassium 3.8 mmol/L (3.4-5.1); Sodium 140 mmol/L (137-145); Total Protein 6.1 g/dL (6.3-8.2)
[2023-08-09 13:46] LABS: Prostate Specific Antigen < 0.064 ng/mL (0.10-4.00)
[2023-08-09 13:47] LABS: Testosterone 46.5 ng/dL (71.8-623)
== END ==
PROVIDERS: PCP Nurse Practitioner; Referring Provider Internal Medicine Hematology & Oncology; Visit Provider Internal Medicine Hematology & Oncology
DX: C61 Malignant neoplasm of prostate (principal)
CPT/HCPCS: 36415; 80053; 84153; 84403; 85025

== ENCOUNTER → 2023-11-19 11:25 | Outpatient (CLI) | payer MEDICARE, OTHER, SELFPAY ==
[2023-11-19 12:48] LABS: Add Manual Diff / Slide Review NO; Basophils Absolute Auto 100 /uL (0-100); Basophils Percent Auto 0.6 % (0-2); Eosinophils Absolute Auto 200 /uL (0-450); Eosinophils Percent Auto 1.6 % (2-4); Hematocrit 38.3 % (41-53); Hemoglobin 13.1 g/dL (13.5-17.5); Lymphocytes Absolute Auto 1700 /uL (1100-4500); Lymphocytes Percent Auto 17.9 % (25-40); Mean Corpuscular HGB Conc 34.1 % (30-36); Mean Corpuscular Hemoglobin 33.9 PG (26-34); Mean Corpuscular Volume 99.3 fL (80-100); Monocytes Absolute Auto 1000 /uL (0-900); Monocytes Percent Auto 10.9 % (3-14); Neutrophils Absolute Auto 6500 /uL (1500-7000); Red Blood Cell Count 3.86 X10^6/uL (4.5-5.9); Red Cell Distribution Width 13.6 % (11.6-14.8); White Blood Cell Count 9.4 X10^3/uL (4.5-11.0)
[2023-11-19 13:00] LABS: Alanine Aminotransferase 24 IU/L (<50); Albumin 4.1 g/dL (3.5-5.0); Albumin Globulin Ratio 1.6 (1.0-2.8); Alkaline Phosphatase 62 U/L (38-126); Aspartate Aminotransferase 28 IU/L (17-59); Bilirubin Total 0.8 mg/dL (0.2-1.3); Blood Urea Nitrogen 23 mg/dL (9-20); Calcium 9.8 mg/dL (8.4-10.2); Carbon Dioxide 25 mmol/L (22-32); Chloride 106 mmol/L (98-107); Estimated Glomerular Filt Rate > 60 mL/min (>60); Globulin 2.5 g/dL (1.7-4.1); Glucose 128 mg/dL (80-110); HEMOLYSIS 23 (0-50); Potassium 3.8 mmol/L (3.4-5.1); Sodium 138 mmol/L (137-145); Total Protein 6.6 g/dL (6.3-8.2)
[2023-11-19 13:27] LABS: Testosterone 198 ng/dL (71.8-623)
[2023-11-19 13:29] LABS: Prostate Specific Antigen < 0.064 ng/mL (0.10-4.00)
== END ==
PROVIDERS: PCP Nurse Practitioner; Referring Provider Internal Medicine Hematology & Oncology; Visit Provider Internal Medicine Hematology & Oncology
DX: C61 Malignant neoplasm of prostate (principal)
CPT/HCPCS: 36415; 80053; 84153; 84403; 85025

== ENCOUNTER → 2024-01-20 08:58 | Outpatient (CLI) | payer MEDICARE, OTHER, SELFPAY ==
[2024-01-20 10:41] LABS: Add Manual Diff / Slide Review NO; Alanine Aminotransferase 22 IU/L (<50); Albumin 3.6 g/dL (3.5-5.0); Albumin Globulin Ratio 1.6 (1.0-2.8); Alkaline Phosphatase 55 U/L (38-126); Aspartate Aminotransferase 24 IU/L (17-59); BUN Creatinine Ratio 20.5 (6-22); Basophils Absolute Auto 100 /uL (0-100); Basophils Percent Auto 0.9 % (0-2); Bilirubin Total 0.7 mg/dL (0.2-1.3); Blood Urea Nitrogen 25 mg/dL (9-20); Calcium 10.3 mg/dL (8.4-10.2); Carbon Dioxide 30 mmol/L (22-32); Chloride 106 mmol/L (98-107); Eosinophils Absolute Auto 400 /uL (0-450); Eosinophils Percent Auto 5.1 % (2-4); Estimated Glomerular Filt Rate 57 mL/min (>60); Globulin 2.3 g/dL (1.7-4.1); Glucose 128 mg/dL (80-110); HEMOLYSIS < 15 (0-50); Hematocrit 39.5 % (41-53); Hemoglobin 13.2 g/dL (13.5-17.5); Lymphocytes Absolute Auto 1900 /uL (1100-4500); Lymphocytes Percent Auto 23.3 % (25-40); Mean Corpuscular HGB Conc 33.5 % (30-36); Mean Corpuscular Hemoglobin 33.1 PG (26-34); Mean Corpuscular Volume 98.6 fL (80-100); Monocytes Absolute Auto 1200 /uL (0-900); Monocytes Percent Auto 14.9 % (3-14); Neutrophils Absolute Auto 4600 /uL (1500-7000); Neutrophils Percent Auto 55.8 % (50-75); Platelet Count 270 X10^3/uL (150-400); Potassium 4.1 mmol/L (3.4-5.1); Red Cell Distribution Width 13.3 % (11.6-14.8); Sodium 139 mmol/L (137-145); Total Protein 5.9 g/dL (6.3-8.2); White Blood Cell Count 8.2 X10^3/uL (4.5-11.0)
[2024-01-20 11:14] LABS: Testosterone 47.2 ng/dL (71.8-623)
[2024-01-20 11:17] LABS: Prostate Specific Antigen < 0.064 ng/mL (0.10-4.00)
== END ==
LOC: LAB 09:01
PROVIDERS: PCP Internal Medicine; Referring Provider Internal Medicine Hematology & Oncology; Visit Provider Internal Medicine Hematology & Oncology
DX: C61 Malignant neoplasm of prostate (principal)
CPT/HCPCS: 36415; 80053; 84153; 84403; 85025

== ENCOUNTER → 2024-04-23 11:05 | Outpatient (CLI) | payer MEDICARE, OTHER, SELFPAY ==
[2024-04-23 12:06] LABS: Add Manual Diff / Slide Review NO; Basophils Absolute Auto 100 /uL (0-100); Basophils Percent Auto 0.6 % (0-2); Eosinophils Absolute Auto 300 /uL (0-450); Eosinophils Percent Auto 2.9 % (2-4); Hematocrit 40.7 % (41-53); Hemoglobin 13.5 g/dL (13.5-17.5); Lymphocytes Absolute Auto 1800 /uL (1100-4500); Lymphocytes Percent Auto 18.4 % (25-40); Mean Corpuscular HGB Conc 33.1 % (30-36); Mean Corpuscular Hemoglobin 32.8 PG (26-34); Mean Corpuscular Volume 99.1 fL (80-100); Monocytes Absolute Auto 1200 /uL (0-900); Monocytes Percent Auto 12.1 % (3-14); Neutrophils Absolute Auto 6500 /uL (1500-7000); Platelet Count 179 X10^3/uL (150-400); Red Blood Cell Count 4.11 X10^6/uL (4.5-5.9); Red Cell Distribution Width 13.9 % (11.6-14.8); White Blood Cell Count 9.9 X10^3/uL (4.5-11.0)
[2024-04-23 12:21] LABS: Alanine Aminotransferase 26 IU/L (<50); Albumin Globulin Ratio 1.7 (1.0-2.8); Alkaline Phosphatase 58 U/L (38-126); Aspartate Aminotransferase 29 IU/L (17-59); BUN Creatinine Ratio 23.9 (6-22); Blood Urea Nitrogen 26 mg/dL (9-20); Calcium 10.3 mg/dL (8.4-10.2); Carbon Dioxide 27 mmol/L (22-32); Chloride 105 mmol/L (98-107); Estimated Glomerular Filt Rate > 60 mL/min (>60); Globulin 2.3 g/dL (1.7-4.1); Glucose 134 mg/dL (80-110); HEMOLYSIS < 15 (0-50); Potassium 3.7 mmol/L (3.4-5.1); Sodium 139 mmol/L (137-145); Total Protein 6.3 g/dL (6.3-8.2)
[2024-04-23 12:52] LABS: Testosterone 62.6 ng/dL (71.8-623)
[2024-04-23 12:57] LABS: Prostate Specific Antigen < 0.064 ng/mL (0.10-4.00)
== END ==
PROVIDERS: PCP Internal Medicine; Referring Provider Internal Medicine Hematology & Oncology; Visit Provider Internal Medicine Hematology & Oncology
DX: C61 Malignant neoplasm of prostate (principal)
CPT/HCPCS: 36415; 80053; 84153; 84403; 85025

== ENCOUNTER → 2024-05-12 17:03 | Outpatient (CLI) | payer MEDICARE, OTHER, SELFPAY ==
--- NOTE | 2024-05-12 17:06 | DI.RAD.S_ITS ---
PROCEDURE: XR CHEST 2V INDICATIONS: right upper back pain TECHNIQUE: 2 views of the chest were acquired. COMPARISON: None. FINDINGS: Heart, mediastinum and pulmonary vascular: Heart is mildly enlarged. Mediastinum is unremarkable. Pulmonary vascular is normal. Lungs: Clear Pleural spaces: Normal-no effusions or pneumothorax. Moderate elevation left diaphragm noted. Bones and soft tissues: Moderate degenerative disc disease seen throughout the thoracic spine. IMPRESSION: No acute cardiopulmonary disease Dictated by: Celio Andujar M.D. on 05/13/2024 at 11:31 Approved by: Celio Andujar M.D. on 05/13/2024 at 11:32
== END ==
PROVIDERS: PCP Internal Medicine; Referring Provider Internal Medicine; Visit Provider Internal Medicine
DX: C82.99 Follicular lymphoma, unspecified, extranodal and solid organ sites (principal); C61 Malignant neoplasm of prostate; I51.7 Cardiomegaly
CPT/HCPCS: 71046

== ENCOUNTER → 2024-07-30 11:41 | Outpatient (CLI) | payer MEDICARE, OTHER, SELFPAY ==
[2024-07-30 12:44] LABS: Hematocrit 41.9 % (41-53); Hemoglobin 14.1 g/dL (13.5-17.5)
[2024-07-30 12:59] LABS: Protein (Total) Urine Random 56 mg/dL (0-12)
[2024-07-30 13:01] LABS: BUN Creatinine Ratio 21.8 (6-22); Blood Urea Nitrogen 22 mg/dL (9-20); Calcium 10.5 mg/dL (8.4-10.2); Carbon Dioxide 28 mmol/L (22-32); Chloride 103 mmol/L (98-107); Estimated Glomerular Filt Rate > 60 mL/min (>60); Glucose 133 mg/dL (70-99); HEMOLYSIS < 15 (0-50); Potassium 3.5 mmol/L (3.4-5.1); Sodium 138 mmol/L (137-145)
== END ==
PROVIDERS: PCP Internal Medicine; Referring Provider Student in an Organized Health Care Education/Training Program; Visit Provider Student in an Organized Health Care Education/Training Program
DX: N05.9 Unspecified nephritic syndrome with unspecified morphologic changes (principal); D70.9 Neutropenia, unspecified; D63.1 Anemia in chronic kidney disease; R80.9 Proteinuria, unspecified
CPT/HCPCS: 36415; 80048; 82570; 84156; 85014; 85018

== ENCOUNTER → 2024-08-28 10:42 | Outpatient (CLI) | payer MEDICARE, OTHER, SELFPAY ==
[2024-08-28 11:47] LABS: Blood Urea Nitrogen 25 mg/dL (9-20); Calcium 10.5 mg/dL (8.4-10.2); Carbon Dioxide 27 mmol/L (22-32); Chloride 104 mmol/L (98-107); Estimated Glomerular Filt Rate > 60 mL/min (>60); Glucose 146 mg/dL (70-99); HEMOLYSIS < 15 (0-50); Phosphorous 3.1 mg/dL (2.3-3.7); Potassium 3.9 mmol/L (3.4-5.1); Sodium 139 mmol/L (137-145)
[2024-08-28 14:28] LABS: Creatinine Urine Random 108.23 mg/dL
[2024-08-28 14:35] LABS: Protein (Total) Urine Random 268 mg/dL (0-12); Protein Creatinine Ratio Urine 2.47 GRAM/24H
[2024-08-30 07:36] LABS: Calcium 10.6 mg/dL (8.6-10.2); Parathyroid Hormone, Intact 35 pg/mL (15-65)
== END ==
PROVIDERS: PCP Internal Medicine; Referring Provider Student in an Organized Health Care Education/Training Program; Visit Provider Student in an Organized Health Care Education/Training Program
DX: N18.2 Chronic kidney disease, stage 2 (mild) (principal)
CPT/HCPCS: 36415; 80069; 82310; 82570; 83970; 84156